=== PATIENT | male | born 2000 | race African-American/Black ===

== ENCOUNTER 2023-09-11 17:03 | Emergency (ER) | payer MEDICAID ==
[2023-09-11 17:28] LABS: APPEARANCE,URINE CLEAR; BILIRUBIN,URINE NEGATIVE (NEGATIVE); COLOR,URINE YELLOW; GLUCOSE,URINE NEGATIVE (NEGATIVE); KETONES,URINE NEGATIVE (NEGATIVE); LEUKOCYTE ESTERASE,URINE NEGATIVE (NEGATIVE); NITRITE,URINE NEGATIVE (NEGATIVE); OCCULT BLOOD,URINE NEGATIVE (NEGATIVE); PROTEIN,URINE NEGATIVE (NEGATIVE)
[2023-09-11 18:59] LABS: C. TRACHOMATIS BY PCR NOT DETECTED; N. GONORRHOEAE BY PCR NOT DETECTED
[2023-09-11] MEDS: Doxycycline 100 MG Cap PO ONE (19:47)
== END 2023-09-11 19:52 | disposition home or self-care (01) ==
LOC: MW.ED 17:03
DX: R30.0 Dysuria (principal); Z90.49 Acquired absence of other specified parts of digestive tract; Z75.8 Other problems related to medical facilities and other health care
CPT/HCPCS: 81003; 82947; 87491; 87591; 99283; A9270